=== PATIENT | male | born 1980 | race Two or more races ===

== ENCOUNTER 2019-10-03 13:08 | Emergency (ER) | payer SELFPAY ==
[~2019-10-03] VITALS: Ht 175.3 cm; Wt 79.4 kg
--- NOTE | 2019-10-03 13:29 | NUR ---
Patient discharged to home in stable condition with brisk steady gait. Written and verbal after care instructions given to patient. Patient verbalized understanding & compliance of instructions. Stressed follow up with game engineer or return to ER for worsening s/s.
== END 2019-10-03 13:43 | disposition home or self-care (01) ==
LOC: ER 13:08
DX: L50.9 Urticaria, unspecified (principal)
CPT/HCPCS: A4663